=== PATIENT | female | born 1970 | race Caucasian/White ===

== ENCOUNTER 2018-05-27 21:58 | Emergency (ER) | payer SELFPAY ==
--- NOTE | 2018-05-27 23:20 | RADIOLOGY REPORT (SQ) ---
EXAM DESCRIPTION: XR CHEST 1 VIEW COMPLETED DATE/TME: 05/27/2018 22:29 CLINICAL HISTORY: 47 years, Female, cough/shortness of breath COMPARISON: None. NUMBER OF VIEWS: 1 TECHNIQUE: Single AP view of the chest was obtained. LIMITATIONS: None. There FINDINGS: Unremarkable cardiac and mediastinal silhouette. Heart size is normal. Tortuous thoracic aorta. Faint hazy opacification overlying the RIGHT lower lobe may be secondary to overlying patient breast soft tissue density versus developing consolidation. Lungs are otherwise clear without focal opacity, pneumothorax or pleural effusions. The visualized bones reveal degenerative change. IMPRESSION: Faint hazy opacification overlying the RIGHT lower lobe may be secondary to overlying patient breast soft tissue density versus developing consolidation. Please correlate with patient clinical findings and consider follow-up for resolution. 2011 [address] [facility] [employer]- All Rights Reserved
[2018-05-28] MEDS ORDERED: ACETAMINOPHEN SOLN 325 MG/10.15 ML UDCUP PO ONE (00:19)
[2018-05-28] MEDS ORDERED: IBUPROFEN 600 MG TABLET PO ONE (00:19)
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
[2018-05-28 01:21] LABS: A TYPE INFLUENZA AG NEGATIVE (NEGATIVE); B INFLUENZA AG NEGATIVE (NEGATIVE)
[2018-05-28] MEDS ORDERED: BENZONATATE 100 MG CAPSULE PO ONE (02:31)
[2018-05-28] MEDS ORDERED: AZITHROMYCIN 250 MG TABLET PO ONE (02:31)
[2018-05-28] MEDS ORDERED: PREDNISONE 20 MG TABLET PO ONE (02:36)
[2018-05-28 03:14] VITALS: BP 158/80
--- NOTE | 2018-05-28 10:12 | EKG REPORT ---
SEVERITY:- ABNORMAL ECG - SINUS RHYTHM ANTERIOR INFARCT, OLD : Confirmed by: Hemal Day 28-May-2018 10:11:42
== END 2018-05-28 03:14 | disposition home or self-care (01) ==
LOC: ER 21:58
DX: R05 Cough (principal); F17.200 Nicotine dependence, unspecified, uncomplicated
CPT/HCPCS: 93005; 99284; 87804; 71045; 93010; J7512; J3490